=== PATIENT | female | born 1940 | race Caucasian/White ===

== ENCOUNTER 2019-02-26 08:34 | Day surgery (SDC) | payer OTHER, MEDICARE ==
[2019-02-26 10:33] VITALS: TEMP 97.9
[2019-02-26 11:08] VITALS: BP 130/54; PULSE 56
--- NOTE | 2019-03-01 16:45 | PATH ---
Surgical Pathology Report Patient Name: CHANCE FATIMA [facility]. Rec. #: [id number] /Age/Gender: 1940 (Age: 78) / F Account: [id number] Location: U-ENDOSCOPY Taken: 02/26/2019 Received: 02/26/2019 Reported: 03/01/2019 Physicians: Johny Torres M.D. Specimen(s) Received A: DUODENUM SECOND PORTION B: ANTRUM C: GE JUNCTION Clinical History Epigastric pain, acid reflux Postoperative diagnosis: Erosive gastritis, duodenitis, hiatal hernia Final Diagnosis A. DUODENUM SECOND PORTION OF DUODENUM BULB, BIOPSY: DUODENUM MUCOSAL WITH FOCAL NONSPECIFIC CHRONIC DUODENITIS. NO HISTOLOGIC EVIDENCE OF CELIAC DISEASE. B. ANTRUM, BIOPSY: GASTRIC MUCOSA WITH REACTIVE GASTROPATHY. IMMUNOSTAIN FOR H. PYLORI IS NEGATIVE. NEGATIVE FOR INTESTINAL METAPLASIA. C. GE JUNCTION, BIOPSY: GASTROESOPHAGEAL JUNCTION MUCOSAL WITH CHANGES CONSISTENT WITH REFLUX ESOPHAGITIS. NEGATIVE FOR INTESTINAL METAPLASIA. Electronically Signed Tom Bradford M.D. Gross Description A. Received in formalin, labeled "biopsy second portion of duodenum and duodenal bulb" are 4 briones, irregular portions of soft tissue ranging from 0.2-0.6 cm. in greatest dimension. The specimens are submitted in toto in one cassette. B. Received in formalin, labeled "biopsy antrum" are 4 briones, irregular portions of soft tissue ranging from 0.1-0.5 cm. in greatest dimension. The specimens are submitted in toto in one cassette. C. Received in formalin, labeled "biopsy GE junction" are 3 briones, irregular portions of soft tissue ranging from 0.1-0.6 cm. in greatest dimension. The specimens are submitted in toto in one cassette. DL/02/26/2019 saudi02/26/2019
== END 2019-02-26 11:15 | disposition home or self-care (01) ==
LOC: JASU-ENDO 08:34
PROVIDERS: ATTEND Internal Medicine Gastroenterology
PROC: 0DB68ZX Excision of Stomach, Via Natural or Artificial Opening Endoscopic, Diagnostic (ICD-10-PCS; 2019-02-26)
PROC: 0DB48ZX Excision of Esophagogastric Junction, Via Natural or Artificial Opening Endoscopic, Diagnostic (ICD-10-PCS; principal; 2019-02-26 09:30)
DX: K25.9 Gastric ulcer, unspecified as acute or chronic, without hemorrhage or perforation (principal); K44.9 Diaphragmatic hernia without obstruction or gangrene; K29.80 Duodenitis without bleeding; K21.9 Gastro-esophageal reflux disease without esophagitis
CPT/HCPCS: 88305-TC; 88342-TC